=== PATIENT | male | born 1960 | race Caucasian/White ===

== ENCOUNTER → 2016-12-30 | Day surgery (SDC) | payer MEDICARE, MEDICAID ==
[~2016-12-30] VITALS: Ht 162.6 cm; Wt 68.9 kg
[~2016-12-30] MED LIST: CLAR1TAB2 PO; COLA100C PO; DULC10SU2 PR; GLYCOPYRROLATE INJ 0.2 MG/ML 2 ML VIAL As Ordered ONE; LACT20EL PO; LIDOCAINE 2% INJ 100 MG/5 ML SDV (FOR ANES.) As Ordered ONE; LIDOCAINE 2% W/ EPINEPHRINE 1.7 ML DENTAL INJ As Ordered ONE; LR 1,000 ML IV SCH; MIDAZOLAM INJ 2 MG/2 ML VIAL (J2250) As Ordered ONE; MILKSUS PO; ONDANSETRON 4MG/2ML VIAL (J2405) As Ordered ONE; PAXI20TA3 PO; PROPOFOL 200 MG/20 ML VIAL As Ordered ONE; REFR1DRO8 OU; ROCURONIUM BROMIDE 50 MG/5 ML VIAL As Ordered ONE; VALI10TA PO; ePHEDrine SULFATE 25 MG/5 ML(5MG/ML) SYRINGE As Ordered ONE; fentaNYL 100 MCG/2 ML INJECTION (J3010) As Ordered ONE; fentaNYL 100 MCG/2 ML INJECTION (J3010) IV PRN
[2016-12-30 14:55] VITALS: BP 125/80
--- NOTE | 2016-12-31 11:02 | RO ---
DATE OF PROCEDURE: 12/30/2016 PREPROCEDURE DIAGNOSIS: Periodontitis. POSTPROCEDURE DIAGNOSIS: PROCEDURE: SURGEON: Briana Lofton DDS [employer] BODY ARTIST: ANESTHESIA: DESCRIPTION OF PROCEDURE: The patient, Curtis Jackson, was brought to the operating room and placed onto the operating table in the supine position. After all monitoring equipment was attached to the patient, vital signs were checked, and general anesthetic medicaments were delivered via inhalation. The patient was then prepped and draped for dental surgical procedures. One large throat pack was placed. Mouth prop was placed. One full mouth radiograph series was taken. Comprehensive examination completed. Perio probing depth readings completed. Full mouth scaling and root planing completed. Three carpules of 2% lidocaine with 1:100,000 epinephrine was given via infiltration. Extraction of teeth 2, 4, 12, and 23 completed with straight elevator and #150, 151 forceps. Prophy of remaining dentition completed. Fluoride application completed. The patient was then left in the care of anesthesiology team. Note, there was continuous removal of fluids throughout the duration of all performed dental procedures.
== END | disposition home or self-care (01) ==
LOC: M SDC 10:02
PROVIDERS: ATTEND Dentist General Practice
DX: K05.30 Chronic periodontitis, unspecified (principal); K02.9 Dental caries, unspecified; E78.5 Hyperlipidemia, unspecified; E03.9 Hypothyroidism, unspecified; K59.00 Constipation, unspecified; F32.9 Major depressive disorder, single episode, unspecified; Z79.899 Other long term (current) drug therapy
CPT/HCPCS: 41899; 70310; 88300; J2250; J2405; J3010